=== PATIENT | male | born 2000 | race Caucasian/White ===

== ENCOUNTER 2024-05-04 02:39 | Emergency (ER) | payer SELFPAY ==
[~2024-05-04] VITALS: Ht 180.3 cm; Wt 91.0 kg
[2024-05-04 03:17] VITALS: TEMP 98.8; O2SAT 100
[2024-05-04 03:51] LABS: BASOPHILS % 0.5 % (0.0-2.0); EOSINOPHILS % 1.2 % (0.0-5.0); HEMATOCRIT. 50.7 % (42.0-52.0); HEMOGLOBIN. 17.5 g/dL (14.0-18.0); LYMPHOCYTES % 23.9 % (20.0-50.0); MEAN CORPUSCULAR HEMOGLOBIN 30.3 pg (28.0-32.0); MEAN CORPUSCULAR HGB CONC 34.5 g/dL (31.0-37.0); MEAN CORPUSCULAR VOLUME 87.8 fL (80.0-94.0); MEAN PLATELET VOLUME 8.9 fl (7.4-10.4); MONOCYTES % 9.2 % (2.0-8.0); NEUTROPHILS % 65.2 % (40.0-76.0); PLATELET 220 x1000/uL (130-400); RED BLOOD CELL COUNT 5.78 mill/uL (4.7-6.1); RED CELL DISTRIBUTION WIDTH 13.3 % (11.6-14.6); WHITE BLOOD COUNT 8.7 x1000/uL (4.5-11.0)
[2024-05-04 03:55] LABS: CHLORIDE 102 mEq/L (98-107); SODIUM 137 mEq/L (136-145)
[2024-05-04 03:56] LABS: CARBON DIOXIDE 27 mEq/L (21-32)
[2024-05-04 03:57] LABS: CALCIUM 10.4 mg/dL (8.7-10.4)
[2024-05-04 04:01] LABS: CREATININE 1.1 mg/dL (0.6-1.3); GLUCOSE 108 mg/dL (70-105)
[2024-05-04 04:02] LABS: UREA NITROGEN BLOOD 8 mg/dL (9-23)
[2024-05-04] MEDS ORDERED: DICYCLOMINE 10 MG/5 ML ORAL SYR PO STA (05:23)
[2024-05-04] MEDS: ONDANSETRON 4MG ODT PO STA (05:45)
[2024-05-04] MEDS: DICYCLOMINE HCL 10MG CAPSULE PO NR (05:45)
[2024-05-04] MEDS: MAGNESIUM/ALUMINUM HYDROXIDE/SIMETHICONE 30ML UDC PO STA (05:45)
[2024-05-04 06:06] LABS: CARBON DIOXIDE 29 mEq/L (21-32); CHLORIDE 102 mEq/L (98-107); POTASSIUM 4.1 mEq/L (3.5-5.1); SODIUM 137 mEq/L (136-145)
[2024-05-04 06:07] LABS: CALCIUM 10.2 mg/dL (8.7-10.4)
[2024-05-04 06:12] LABS: GLUCOSE 109 mg/dL (70-105); UREA NITROGEN BLOOD 9 mg/dL (9-23)
[2024-05-04 06:13] LABS: ALANINE AMINOTRANSFERASE 47 IU/L (10-49); ALBUMIN 5.2 g/dL (3.2-4.8); ASPARTATE AMINOTRANSFERASE 21 IU/L (<34)
[2024-05-04 06:14] LABS: BILIRUBIN DIRECT 0.3 mg/dL (<=3.0); BILIRUBIN TOTAL 1.5 mg/dL (0.1-1.0); PROTEIN TOTAL 8.1 g/dL (6.0-8.3)
[2024-05-04 07:57] LABS: CLARITY URINE CLEAR (CLEAR); COLOR URINE DARK YELLOW (YELLOW); GLUCOSE URINE NEGATIVE (NEGATIVE); KETONES URINE NEGATIVE (NEGATIVE); LEUKOCYTE ESTERASE URINE NEGATIVE (NEGATIVE); NITRITE URINE NEGATIVE (NEGATIVE); OCCULT BLOOD URINE NEGATIVE (NEGATIVE); PH URINE 5.5 (4.5-8.0); PROTEIN URINE NEGATIVE (NEGATIVE); SPECIFIC GRAVITY URINE 1.023 (1.005-1.030); UROBILINOGEN URINE 0.2 E.U./dL (0.2-1.0)
[2024-05-04] MEDS ORDERED: FAMO-135 PO (08:05)
[2024-05-04] MEDS ORDERED: MAG355OR21 PO (08:05)
[2024-05-04 08:41] VITALS: BP 132/76; PULSE 88; RESP 16; O2SAT 99
== END 2024-05-04 08:46 | disposition home or self-care (01) ==
LOC: ER 02:39
DX: K29.70 Gastritis, unspecified, without bleeding (principal)
CPT/HCPCS: 99284; 76705; 80076; 80048; 81003; 83690; 85025; 36415; Q0162